=== PATIENT | female | born 1975 | race Caucasian/White ===

== ENCOUNTER → 2016-12-30 | Outpatient (CLI) | payer OTHER | LOC: FCPNEURO 23:29 | PROVIDERS: ATTEND Psychiatry & Neurology Sleep Medicine | DX: G47.33 Obstructive sleep apnea (adult) (pediatric) (principal) ==

== ENCOUNTER 2017-07-21 06:27 | Day surgery (SDC) | payer OTHER ==
[2017-07-21] MEDS ORDERED: LIDOCAINE 1% 2 ML INJ ID PRN (06:33)
[2017-07-21] MEDS ORDERED: LR 1,000 ML IV ONE (06:33)
[2017-07-21 06:51] VITALS: PULSE 71
--- NOTE | 2017-07-21 07:37 | PDANEPAE ---
ANE History of Present Illness 42 y/o female w/ history of APRIL (not on CPAP yet, in mask fitting phase), exercise induced asthma, IBS (steroid induced) and previous PONV and post- operative hypotension presents for hysteroscopy/morcellator. Note; Patient requested phone call from Anesthesiologist night before surgery. This activity was performed by this MD. Patient very concerned about PONV and prior post-operative hypotension. ANE Past Medical History - Cardiovascular History Hx Hypertension: No Hx Arrhythmias: No Hx Chest Pain: No Hx Coronary Artery / Peripheral Vascular Disease: No Hx CHF / Valvular Disease: No Hx Palpitations: No Cardiovascular History Comment: LOW BP AND HEARTRATE - Pulmonary History Hx COPD: No Hx Asthma/Reactive Airway Disease: Yes Hx Recent Upper Respiratory Infection: No Hx Oxygen in Use at Home: No Hx Sleep Apnea: Yes Sleep Apnea Screening Result - Last Documented: Negative Pulmonary History Comment: APRIL DX 12/2016 IN PROCESS OF GETTING MASK ADJUSTMENT SO NOT CURRENTLY USING C-PAP. EXERCISE INDUCED ASTHMA - NO INHALERS WITHOUT ISSUE IN LONG TIME - Neurologic History Hx Cerebrovascular Accident: No Hx Seizures: No Hx Dementia: No - Endocrine History Hx Diabetes: No Hypothyroid: No Hyperthyroid: No - Renal History Hx Renal Disorders: No - Liver History Hx Hepatic Disorders: No - Neurological & Psychiatric Hx Hx Neurological and Psychiatric Disorders: No - Cancer History Hx Cancer: No - Congenital Disorder History Hx Congenital Disorders: No - GI History Hx Gastrointestinal Disorders: Yes Gastrointestinal History Comment: HX IBS - STRESS INDUCED - Other Health History Other Health History: INCREASED UTERINE BLEEDING. HX OF POLYPS - Chronic Pain History Chronic Pain: No - Surgical History Prior Surgeries: HYSTEROSCOPY WITH POLYP REMVL 03/2015. R BUNIONECTOMY R. WISDOM TEETH EXTRACTION ANE Review of Systems Review of systems is: negative Review of Systems: - Exercise capacity Exercise capacity: >=4 METS METS (RN): 6 METS ANE Patient History - Allergies Allergies/Adverse Reactions: No Known Allergies Allergy (Unverified 03/26/15 11:56) - Home Medications Home medications: home medication list seen and reviewed Home Medications: IBUPROFEN PRN 07/17/17 [Last Taken 07/17/17] Tylenol Extra Strength 07/21/17 [Last Taken 07/19/17] - NPO status NPO Status: no food or drink >8 hours NPO Since - Liquids (Date): 07/20/17 NPO Since - Liquids (Time): 22:00 NPO Since - Solids (Date): 07/20/17 NPO Since - Solids (Time): 21:30 - Anes Hx Anes Hx: post operative nausea and vomiting - Smoking Hx Smoking Status: Never smoked Marijuana use: No - Alcohol Use Alcohol Use: Rarely - Family Anes Hx Family Anes Hx: neg - N/A Family Hx Anesthesia Complications: NEG ANE Labs/Vital Signs - Vital Signs Vital Signs: reviewed preoperatively; see RN documention for details Blood Pressure: 122/88 Heart Rate: 71 Respiratory Rate: 16 O2 Sat (%): 99 Height: 162.56 cm Weight: 4989.516 g ANE Physical Exam - Airway Neck exam: FROM Mallampati Score: Class 2 Mouth exam: normal dental/mouth exam - Pulmonary Pulmonary: no respiratory distress - Cardiovascular Cardiovascular: regular rate and rhythym - ASA Status ASA Status: II ANE Anesthesia Plan Anesthesia Plan: GA w LMA Total IV Anesthesia: Yes
[2017-07-21] MEDS ORDERED: MIDAZOLAM 2 MG/2 ML VIAL IVP ONE (07:43)
[2017-07-21] MEDS ORDERED: SCOPOLAMINE HYDROBROMIDE 1 MG/3 DAYS PATCH TD SCH (07:45)
[2017-07-21] MEDS ORDERED: PROPOFOL/EMULSION 500 MG/50 ML BOTTLE IV ONE ×2 (07:51→08:33)
[2017-07-21] MEDS ORDERED: fentaNYL 100 MCG/2 ML INJ ONE (07:52)
[2017-07-21] MEDS ORDERED: ONDANSETRON 4 MG/2 ML VIAL ONE (07:56)
[2017-07-21] MEDS ORDERED: DEXAMETHASONE 4 MG/ML VIAL ONE (07:56)
[2017-07-21] MEDS ORDERED: SUGAMMADEX SODIUM 200 MG/2 ML VIAL IVP ONE (08:09)
[2017-07-21] MEDS ORDERED: ROCURONIUM 50 MG/5 ML VIAL ONE (08:09)
--- NOTE | 2017-07-21 08:18 | PDHPUP ---
History & Physical Update H&P update statement: This history and physical update is based on an assessment of the patient which was completed after admission or registration (within 24 hours), but prior to the surgery/procedure.
[2017-07-21] MEDS ORDERED: LR 500 ML IV PRN (08:21)
[2017-07-21] MEDS ORDERED: HYDROCODONE/APAP 5/325 TAB PO PRN (08:21)
[2017-07-21] MEDS ORDERED: fentaNYL 100 MCG/2 ML INJ IVP PRN (08:21)
[2017-07-21] MEDS ORDERED: ONDANSETRON 4 MG/2 ML VIAL IVP PRN (08:21)
[2017-07-21] MEDS ORDERED: NALOXONE HCL 0.4 MG/ML INJ IVP PRN (08:21)
[2017-07-21] MEDS ORDERED: PHENYLEPHRINE HCL 100 MCG/ML SYR IVP PRN (08:21)
--- NOTE | 2017-07-21 08:56 | POSTOPPROG ---
Post Op Note Date of Operation: 07/21/17 Surgeon: Rhina Shelton Anesthesiologist: Delano Antonio Anesthesia: IV Sedation, LMA Pre-op Diagnosis: DUB. polyps Post-op Diagnosis: DUB , polyps Procedure: H/S polypecotmy Findings: multiple polyps Inf/Abcess present in the surg proc area at time of surgery?: No EBL: Minimal
--- NOTE | 2017-07-21 09:22 | GOP ---
[f rep st] OPERATIVE REPORT DATE OF OPERATION: SURGEON: Rhina Shelton MD ANESTHESIA: He did IV propofol for general anesthesia. ANESTHESIOLOGIST: Dalton Antonio MD PREOPERATIVE DIAGNOSIS: 1. Recurrent endometrial polyps. 2. Dysfunctional uterine bleeding. POSTOPERATIVE DIAGNOSIS: 1. Recurrent endometrial polyps. 2. Dysfunctional uterine bleeding. PROCEDURE PERFORMED: Hysteroscopic polypectomy. FINDINGS: Multiple lower uterine segment polyps, all about 0.5 to 1 cm. Normal tubal ostia. Normal -appearing cervix. ESTIMATED BLOOD LOSS: Minimal. INDICATIONS: The patient is a 42-year-old who underwent hysteroscopic polypectomy in 2014, with impr ovement of menstrual cycles. She has had return of heavy bleeding and irregular bleeding, and recent ultrasound sonohysterogram showed multiple endometrial polyps, and the patient desires resection of above. She has been offered NovaSure ablation, and she is not ready to proceed with that. DESCRIPTION OF PROCEDURE: With informed consent signed, patient taken to the operating room, placed under general anesthesia, placed in the low dorsal lithotomy position, and prepped and draped in the usual sterile fashion. Tenaculum placed on the anterior lip of the cervix, and cervix dilated to 3.5 to 4 mm. The smaller Truclear scope, which is a 3 mm scope, was placed into the cervix, and normal saline used as the filling medium, and findings as noted above. The rotary blade placed through the hysteroscope, and resection of all the noted polyps done. Extra endometrial tissue was also obtained just to cause complete removal of any polyp remnants. Once this was completed, the hysteroscope was removed and net fluid deficit was about 100 cc. Hemostasis was obtained. The patient was placed in supine position, awakened in the operating room, and taken to the recovery room in stable condition. She tolerated the procedure well. COMPLICATIONS: None. /[id number]/MODL
[2017-07-21] MEDS ORDERED: HYDROCODONE/APAP 5/325 TAB ONE (10:10)
[2017-07-21 10:48] VITALS: RESP 15
[2017-07-21 11:10] VITALS: BP 120/79; TEMP 97.7; O2SAT 98
--- NOTE | 2017-07-21 13:11 | POSTANESTH ---
Post Anesthetic Evaluation Cardiovascular Status: Normal, Stable, Similar to Pre-Op Cond Respiratory Status: Normal, Stable, Similar to Pre-op Cond. Level of Consciousness/Mental Status: Can Participate in Eval, Alert and Oriented Pain Control: Adequate, Prn Tx Ordered Nausea/Vomiting Control: Adequate, Prn Tx Ordered Complications Possibly Related to Anesthesia: None Noted
[2017-07-24] MEDS ORDERED: PATCH REMOVAL 1 EA PATCH TD SCH (07:44)
== END 2017-07-21 11:25 | disposition home or self-care (01) ==
LOC: FSGY 06:27
PROVIDERS: ATTEND Obstetrics & Gynecology Gynecology
PROC: 0UB98ZZ Excision of Uterus, Via Natural or Artificial Opening Endoscopic (ICD-10-PCS; principal; 2017-07-21 08:00)
DX: N84.0 Polyp of corpus uteri (principal)
CPT/HCPCS: 58558; C1782; J1100; J2250; J2405; J2704; J3010

== ENCOUNTER 2017-10-21 16:59 | Emergency (ER) | payer OTHER ==
--- NOTE | 2017-10-21 17:41 | EDPHY ---
H & P Time Seen by Provider: 10/21/17 17:09 HPI/ROS: CHIEF COMPLAINT: Abdominal pain HISTORY OF PRESENT ILLNESS: 42-year-old female presents to the emergency department by private vehicle with right lower quadrant abdominal pain. The patient had pain in her right lower quadrant that began 5 or 6 hr ago. She states that she has a constant pain with levels of more severe pain in her right lower quadrant. She has no flank pain. No radiation of symptoms. Her last menstrual period was 2 weeks ago and she denies . She has never had pain like this before. She states over last 2 weeks she has had some generalized abdominal pain and some bloating although developed this acute pain in her right lower quadrant today. No urinary symptoms. No flank pain. REVIEW OF SYSTEMS: Constitutional: No fever, no chills. Eyes: No double or blurry vision. ENT: No sore throat. Respiratory: No cough, no shortness of breath. Cardiac: No chest pain. Gastrointestinal: Abdominal pain as above. No vomiting or diarrhea. Genitourinary: No dysuria. Musculoskeletal: No neck or back pain. Skin: No rashes. Neurological: No headache. Past Medical/Surgical History: Uterine polypectomy Social History: Single Smoking Status: Never smoked Physical Exam: General Appearance: Alert, no distress. Afebrile. Eyes: Pupils equal and round. Extraocular motions are all intact. ENT: Mouth: Mucous membranes moist. Respiratory: No wheezing, rhonchi, or rales, lungs are clear to auscultation. Cardiovascular: Regular rate and rhythm. Gastrointestinal: Abdomen is soft. Patient has tenderness with palpation especially the right lower quadrant. There is no rebound, guarding or masses noted. No CVA tenderness bilaterally. Neurological: Alert and oriented x 3, cranial nerves II through XII grossly intact Skin: Warm and dry, no rashes. Musculoskeletal: Nontender to palpate along the cervical, thoracic or lumbar spine. Neck is supple. Extremities: Full range of motion and no peripheral edema. Psychiatric: Patient is oriented X 3, there is no agitation. Constitutional: Initial Vital Signs Temperature (C) 37.1 C 10/21/17 17:06 Heart Rate 62 10/21/17 17:06 Respiratory Rate 16 10/21/17 17:06 Blood Pressure 133/82 H 10/21/17 17:06 O2 Sat (%) 100 10/21/17 17:06 O2 Delivery Mode Room Air Allergies/Adverse Reactions: No Known Allergies Allergy (Unverified 10/21/17 17:06) Home Medications: Medication Instructions Recorded IBUPROFEN PRN 07/17/17 Tylenol Extra Strength 07/21/17 Medical Decision Making - Diagnostics Imaging Results: Imaging Impressions Abdomen Ultrasound 10/21/17 17:38 Impression: Negative limited right lower quadrant ultrasound, specifically, there are no secondary findings to support a clinical diagnosis of acute appendicitis. Ultrasound Pelvis Complete (Transabdominal and Endovaginal) History: Right lower quadrant pain in a 42-year-old female; possible ovarian cyst.. Technique: Transabdominal and endovaginal ultrasound images were obtained. Endovaginal images obtained for better evaluation of the uterine myometrium and adnexa. Color and pulsed doppler was performed to assess flow. Findings: The uterus is normal in size and measures 6.6 x 3.0 x 3.8 cm. The endometrial measures 0.7 cm in thickness. [No uterine masses are seen.] Follicular cysts are noted bilaterally with no dominant cyst seen in either ovary. The right ovary measures 4.5 x 2.2 x 1.9] cm and the left ovary measures 4.5 x 2.2 x 1.9 cm.. Color and pulsed Doppler flow is identified in both ovaries . [No adnexal masses are seen.] Trace of free fluid is seen in the cul-de-sac which may be physiologic. Impression: Normal pelvic ultrasound with no dominant right ovarian cyst seen to explain right lower quadrant pain. Results called and discussed with TOMI HASSAN on 10/21/2017 at 18:26 Pelvic/Renal Ultrasound 10/21/17 17:38 Impression: Negative limited right lower quadrant ultrasound, specifically, there are no secondary findings to support a clinical diagnosis of acute appendicitis. Ultrasound Pelvis Complete (Transabdominal and Endovaginal) History: Right lower quadrant pain in a 42-year-old female; possible ovarian cyst.. Technique: Transabdominal and endovaginal ultrasound images were obtained. Endovaginal images obtained for better evaluation of the uterine myometrium and adnexa. Color and pulsed doppler was performed to assess flow. Findings: The uterus is normal in size and measures 6.6 x 3.0 x 3.8 cm. The endometrial measures 0.7 cm in thickness. [No uterine masses are seen.] Follicular cysts are noted bilaterally with no dominant cyst seen in either ovary. The right ovary measures 4.5 x 2.2 x 1.9] cm and the left ovary measures 4.5 x 2.2 x 1.9 cm.. Color and pulsed Doppler flow is identified in both ovaries . [No adnexal masses are seen.] Trace of free fluid is seen in the cul-de-sac which may be physiologic. Impression: Normal pelvic ultrasound with no dominant right ovarian cyst seen to explain right lower quadrant pain. Results called and discussed with TOMI HASSAN on 10/21/2017 at 18:26 Imaging: Discussed imaging studies w/ transformation architect Radiologist ED Course/Re-evaluation: 42-year-old female presents to the emergency department with abdominal pain. She felt the pain became acutely worse in her right lower quadrant about 5 or 6 hr ago. Laboratory studies reveal normal white blood cell count normal chemistries. Her LFTs were normal. Urinalysis revealed small amount of white blood cells and small bacteria. Patient clinically does not have urinary tract infection. She has no dysuria, urgency or frequency with urination. I do not think antibiotics are indicated. Pelvic and abdominal ultrasound was obtained which did not reveal an abnormal appendix. There is no free fluid. Pelvic ultrasound was unremarkable. The patient had serial examinations. Upon discharge, the patient was feeling like her pain had nearly completely resolved. Her nausea resolved. She was given anything for the pain or the nausea. I did explain to the patient that ultrasound did not reveal a normal appendix however there was no indication of abnormal appendix or acute appendicitis. She understands that to fully exclude this, CT imaging of the abdomen pelvis with IV contrast would need to be ordered. This was offered to the patient and the patient declined. The patient also reports 2 week history of diffuse abdominal pain and pain especially after eating. She does have normal liver function test. I did explain to her that this could be related to her gallbladder. I offered gallbladder ultrasound and the patient declined. The patient is requesting to be discharged home. She states that her pain is improving and nearly completely resolved and her nausea is gone and would like to follow up with primary care provider an outpatient manager intermediate. I think this is reasonable. She was given precautions and told to return to the emergency department she developed recurring abdominal pain, vomiting, fever, or if she felt worse in any way. Patient was comfortable with this plan. The case was discussed with Dr. Dr. Cedeño, secondary supervising physician, who did not directly evaluate the patient but agrees with treatment and plan. Differential Diagnosis: Including but not limited to acute appendicitis, urinary tract infection, pyelonephritis, ovarian cyst, ovarian torsion, ectopic , kidney stone - Data Points Laboratory Results: Laboratory Results 10/21/17 17:45 10/21/17 17:45 10/21/17 10/21/17 10/21/17 17:45 17:45 17:45 WBC RBC Hgb Hct MCV MCH MCHC RDW Plt Count MPV Neut % (Auto) Lymph % (Auto) Z[place] % (Auto) Eos % (Auto) Baso % (Auto) Nucleat RBC Rel Count Absolute Neuts (auto) Absolute Lymphs (auto) Absolute Monos (auto) Absolute Eos (auto) Absolute Basos (auto) Absolute Nucleated RBC Immature Gran % Immature Gran # Sodium Potassium Chloride Carbon Dioxide Anion Gap BUN Creatinine Estimated GFR Glucose Calcium Total Bilirubin 1.1 mg/dL mg/dL (0.1-1.4) Conjugated Bilirubin 0.4 mg/dL mg/dL (0.0-0.5) Unconjugated Bilirubin 0.7 mg/dL mg/dL (0.0-1.1) AST 26 IU/L IU/L (14-46) ALT 30 IU/L IU/L (9-52) Alkaline Phosphatase 61 IU/L IU/L (38-126) Total Protein 8.2 g/dL g/dL (6.3-8.2) Albumin 5.0 g/dL g/dL (3.5-5.0) Lipase 289 IU/L IU/L (23-300) Beta HCG, Qual NEGATIVE Urine Color PALE YELLOW Urine Appearance CLEAR Urine pH 6.0 (5.0-7.5) Ur Specific [place] 1.004 (1.002-1.030) Urine Protein NEGATIVE (NEGATIVE) Urine Ketones NEGATIVE (NEGATIVE) Urine Blood 1+ H (NEGATIVE) Urine Nitrate NEGATIVE (NEGATIVE) Urine Bilirubin NEGATIVE (NEGATIVE) Urine Urobilinogen NEGATIVE EU EU (0.2-1.0) Ur Leukocyte Esterase TRACE H (NEGATIVE) Urine RBC 1-3 /hpf /hpf (0-3) Urine WBC 3-5 /hpf H /hpf (0-3) Ur Epithelial Cells TRACE /lpf /lpf (NONE-1+) Urine Bacteria TRACE /hpf H /hpf (NONE SEEN) Urine Glucose NEGATIVE (NEGATIVE) 10/21/17 10/21/17 17:45 17:45 WBC 7.36 10^3/uL 10^3/uL (3.80-9.50) RBC 4.83 10^6/uL 10^6/uL (4.18-5.33) Hgb 14.4 g/dL g/dL (12.6-16.3) Hct 42.5 % % (38.0-47.0) MCV 88.0 fL fL (81.5-99.8) MCH 29.8 pg pg (27.9-34.1) MCHC 33.9 g/dL g/dL (32.4-36.7) RDW 12.0 % % (11.5-15.2) Plt Count 263 10^3/uL 10^3/uL (150-400) MPV 9.3 fL fL (8.7-11.7) Neut % (Auto) 57.1 % % (39.3-74.2) Lymph % (Auto) 32.5 % % (15.0-45.0) Zapata % (Auto) 7.9 % % (4.5-13.0) Eos % (Auto) 1.9 % % (0.6-7.6) Baso % (Auto) 0.5 % % (0.3-1.7) Nucleat RBC Rel Count 0.0 % % (0.0-0.2) Absolute Neuts (auto) 4.20 10^3/uL 10^3/uL (1.70-6.50) Absolute Lymphs (auto) 2.39 10^3/uL 10^3/uL (1.00-3.00) Absolute Monos (auto) 0.58 10^3/uL 10^3/uL (0.30-0.80) Absolute Eos (auto) 0.14 10^3/uL 10^3/uL (0.03-0.40) Absolute Basos (auto) 0.04 10^3/uL 10^3/uL (0.02-0.10) Absolute Nucleated RBC 0.00 10^3/uL 10^3/uL (0-0.01) Immature Gran % 0.1 % % (0.0-1.1) Immature Gran # 0.01 10^3/uL 10^3/uL (0.00-0.10) Sodium 140 mEq/L mEq/L (135-145) Potassium 3.6 mEq/L mEq/L (3.5-5.2) Chloride 100 mEq/L mEq/L (97-110) Carbon Dioxide 27 mEq/l mEq/l (22-31) Anion Gap 13 mEq/L mEq/L (8-16) BUN 9 mg/dL mg/dL (7-23) Creatinine 0.7 mg/dL mg/dL (0.6-1.0) Estimated GFR > 60 Glucose 88 mg/dL mg/dL (70-100) Calcium 9.6 mg/dL mg/dL (8.5-10.4) Total Bilirubin Conjugated Bilirubin Unconjugated Bilirubin AST ALT Alkaline Phosphatase Total Protein Albumin Lipase Beta HCG, Qual Urine Color Urine Appearance Urine pH Ur Specific [place] Urine Protein Urine Ketones Urine Blood Urine Nitrate Urine Bilirubin Urine Urobilinogen Ur Leukocyte Esterase Urine RBC Urine WBC Ur Epithelial Cells Urine Bacteria Urine Glucose Departure - Departure Disposition: Home, Routine, Self-Care Clinical Impression: Abdominal pain Qualifiers: Abdominal location: right lower quadrant Qualified Code(s): R10.31 - Right lower quadrant pain Condition: Good Instructions: Abdominal Pain (ED) Additional Instructions: Abdominal Pain: Return to the Emergency Department immediately for increasing pain, fever, vomiting, or if not completely better in 8-12 hours. Advance diet as tolerated. Referrals: BILL GREENE [Primary Care Provider] - As per Instructions Felicitas Tripathi MD [Medical Doctor] - As per Instructions (Church Supervisor on- call) Kamari Ayala MD [[facility] Primary Care Provider] - As per Instructions ( Church Supervisor at [facility])
[2017-10-21 17:57] LABS: PLATELET COUNT 263 10^3/uL (150-400)
[2017-10-21 19:47] VITALS: BP 126/76
== END 2017-10-21 19:47 | disposition home or self-care (01) ==
DX: R10.31 Right lower quadrant pain (principal)